=== PATIENT | male | born 1965 | race Caucasian/White ===

== ENCOUNTER 2024-01-20 15:25 | Emergency (ER) | payer BC, OTHER ==
[~2024-01-20] VITALS: Ht 175.3 cm; Wt 84.0 kg
[2024-01-20 15:33] VITALS: O2SAT 97
[2024-01-20] MEDS: ACETAMINOPHEN 160MG/5ML UDC PO ONE (17:00)
[2024-01-20] MEDS ORDERED: ACET-2084 MT (17:06)
[2024-01-20] MEDS: IBUPROFEN 100MG/5ML UDC PO ONE (17:13)
[2024-01-20 17:14] VITALS: BP 100/55; PULSE 88; RESP 16; TEMP 37.16964; O2SAT 97
== END 2024-01-20 17:30 | disposition home or self-care (01) ==
LOC: ER 15:25
DX: J02.9 Acute pharyngitis, unspecified (principal); Z88.6 Allergy status to analgesic agent; Z98.890 Other specified postprocedural states
CPT/HCPCS: 99282